=== PATIENT | female | born 1990 | race Two or more races ===

== ENCOUNTER 2017-09-09 06:12 | Day surgery (SDC) | payer OTHER ==
[2017-09-09] MEDS ORDERED: ROCURONIUM 50 MG INJ (07:16)
[2017-09-09] MEDS ORDERED: PROPOFOL 20 ML (07:16)
[2017-09-09] MEDS ORDERED: LIDOCAINE 1% (MDV) 20 ML INJ (07:16)
[2017-09-09] MEDS ORDERED: MIDAZOLAM 1 MG/ML 2 ML INJ (07:16)
[2017-09-09] MEDS ORDERED: DEXAMETHASONE 4 MG/ML 1 ML INJ ×2 (07:22→08:10)
[2017-09-09] MEDS ORDERED: ONDANSETRON 4 MG INJ (08:09)
[2017-09-09] MEDS ORDERED: METOCLOPRAMIDE 10 MG INJ (08:10)
[2017-09-09] MEDS ORDERED: SCOPOLAMINE 1.5 MG PATCH (08:10)
[2017-09-09] MEDS ORDERED: FAMOTIDINE 20 MG INJ (08:10)
[2017-09-09] MEDS: POLYMYXIN/BACITRACIN 1L IRRIG (09:05)
[2017-09-09] MEDS ORDERED: MEPERIDINE 25 MG INJ IV (09:30)
[2017-09-09] MEDS ORDERED: DIPHENHYDRAMINE 50 MG INJ IV (09:30)
[2017-09-09] MEDS ORDERED: SUGAMMADEX SODIUM 200 MG/2 ML VIAL IV (09:41)
[2017-09-09] MEDS ORDERED: ROPIVACAINE 0.5 % 30 ML VIAL (09:55)
[2017-09-09] MEDS: morphine SULFATE/PF (10 MG/10 ML) INJ (10:10)
[2017-09-09] MEDS: ROPIVACAINE 0.5 % 30 ML VIAL (10:10)
[2017-09-09] MEDS ORDERED: morphine 2 MG INJ IV (10:30)
[2017-09-09] MEDS: morphine 10 MG INJ IV (10:53)
[2017-09-09] MEDS: ONDANSETRON 4 MG INJ IV (10:53)
== END 2017-09-09 12:23 | disposition home or self-care (01) ==
LOC: SDS 06:12
DX: S83.511A Sprain of anterior cruciate ligament of right knee, initial encounter (principal); X58.XXXA Exposure to other specified factors, initial encounter
CPT/HCPCS: 29888